=== PATIENT | male | born 1995 | race Caucasian/White ===

== ENCOUNTER → 2016-09-28 | Outpatient (CLI) | payer BC ==
--- NOTE | 2016-09-28 14:23 | DIAGNOSTIC IMAGING REPORT ---
TESTICULAR ULTRASOUND HISTORY: R10.2 Perineal [id number] COMPARISON: None. FINDINGS: Right testis: 4.6 x 1.9 x 2.5 cm. There are no intratesticular masses. Normal color flow. No hydrocele. The epididymis is unremarkable. Left testis: 4.2 x 1.9 x 2.4 cm. There are no intratesticular masses. Normal color flow. Trace hydrocele. The epididymis is unremarkable. IMPRESSION: Trace left hydrocele, otherwise normal testicular ultrasound. Electronically signed by: Pipo Goyal M.D. 09/28/2016 2:21 PM Dictated Date/Time: 09/28/2016 2:19 PM
== END | disposition home or self-care (01) ==
LOC: C.ULTR 13:22
PROVIDERS: ATTEND Urology
DX: R10.2 Pelvic and perineal pain (principal)

== ENCOUNTER → 2016-10-23 | Outpatient (CLI) | payer BC ==
--- NOTE | 2016-10-23 14:45 | DIAGNOSTIC IMAGING REPORT ---
PELVIS ONE VIEW, RIGHT HIP 2 VIEWS CLINICAL HISTORY: RIGHT HIP PAIN Right COMPARISON STUDY: None. FINDINGS: No fracture or dislocation within the pelvis or hips. Cartilage spaces are maintained for age. Soft tissues are unremarkable. The sacrum and bilateral sacroiliac joints are within normal limits. IMPRESSION: No fracture or dislocation within the pelvis or hips. Electronically signed by: Pipo Goyal M.D. 10/23/2016 2:44 PM Dictated Date/Time: 10/23/2016 2:42 PM
== END | disposition home or self-care (01) ==
LOC: C.RDSM 14:35
PROVIDERS: ATTEND Family Medicine
DX: M25.551 Pain in right hip (principal)

== ENCOUNTER → 2017-04-30 | Outpatient (CLI) | payer BC ==
[~2017-04-30] MED LIST: GADAVIST IV PRN; PATIENT'S ALLERGY INFO NEEDS ENTERED STA
--- NOTE | 2017-04-30 12:23 | DIAGNOSTIC IMAGING REPORT ---
RIGHT HIP MRI with INTRA-ARTICULAR CONTRAST HISTORY: Right hip pain. TECHNIQUE: Multiplanar multisequence MRI of the right hip was performed following the intra-articular injection of contrast. COMPARISON STUDY: Pelvis and right hip 10/23/2016. FINDINGS: Normal marrow signal intensity seen throughout the visualized osseous structures. No fracture or dislocation within the right hip. Cartilage spaces are maintained. No intra-articular loose bodies. The labrum appears intact. The right hip musculature is within normal limits. IMPRESSION: Normal right hip MRI. No evidence for labral tear. Electronically signed by: Pipo Goyal M.D. 04/30/2017 12:21 PM Dictated Date/Time: 04/30/2017 12:16 PM
--- NOTE | 2017-04-30 12:45 | DIAGNOSTIC IMAGING REPORT ---
FLUOROSCOPIC GUIDED RIGHT HIP ARTHROGRAM FLUOROSCOPY TIME: 4 seconds. HISTORY: Right hip pain.. PROCEDURE: After obtaining written informed consent, the patient was placed supine on the fluoroscopy table. A suitable site for needle insertion was marked using fluoroscopic guidance. The right hip was prepped and draped in the usual sterile fashion. 1% lidocaine was used for skin, subcutaneous and deep soft tissue anesthesia. Under intermittent fluoroscopic guidance, a 22 gauge 3.5 inch spinal needle was inserted into the right hip joint. A total of 14 cc of a mixture of dilute Gadavist and Optiray 300 were injected. The needle was then removed. There were no apparent complications. The patient was transported to MR for further imaging. IMPRESSION: Fluoroscopic-guided right hip arthrogram without immediate complication. Total injected volume was 14 cc. MR portion of the examination will be dictated separately. Electronically signed by: Pipo Goyal M.D. 04/30/2017 12:44 PM Dictated Date/Time: 04/30/2017 12:43 PM
== END | disposition home or self-care (01) ==
LOC: C.MRIBC 10:35
PROVIDERS: ATTEND Physician Assistant
DX: M25.551 Pain in right hip (principal)

== ENCOUNTER → 2017-05-10 | Outpatient (CLI) | payer BC | END | disposition home or self-care (01) | LOC: C.RDSM 08:45 | PROVIDERS: ATTEND Orthopaedic Surgery | DX: M25.551 Pain in right hip (principal) ==